=== PATIENT | male | born 1945 | race Caucasian/White ===

== ENCOUNTER 2016-04-10 15:08 | Observation (INO) | payer MEDICARE, OTHER ==
[2016-04-10] VITALS (9 sets, daily range): BP systolic 122–147; BP diastolic 70–79; PULSE 48–64; RESP 15–20; TEMP 97.2; Ht 167.6 cm; Wt 112.3 kg
[~2016-04-10] VITALS: Ht 167.6 cm; Wt 112.3 kg
[~2016-04-10 15:08] MED LIST: AMLO2.5T2 PO; DOCU-144 PO; DONE10TA7 PO; Fenofibrate PO; GABA300C16 PO; HYDR-762 PO; LORA1TAB PO; MEMA5TAB PO; ZOLP5TAB6 PO
[2016-04-10] MEDS ORDERED: SOD CHLORIDE 0.9% 500 ML IV STA (15:21)
[2016-04-10 15:39] LABS: BASOPHILS % 0.4 % (0.0-2.0); EOSINOPHILS # 0.1 10^3/ul (0.0-0.5); EOSINOPHILS % 1.1 % (0.0-7.0); HEMATOCRIT 47.8 % (42.0-52.0); HEMOGLOBIN 16.1 g/dl (14.0-18.0); LYMPHOCYTES # 1.9 10^3/ul (0.8-2.9); LYMPHOCYTES % 17.4 % (15.0-51.0); MEAN CORPUSCULAR HGB CONC 33.7 g/dl (32.0-37.0); MEAN CORPUSCULAR VOLUME 85.9 fl (82.0-101.0); MEAN PLATELET VOLUME 6.9 fl (7.4-10.4); MONOCYTE # 0.9 10^3/ul (0.3-0.9); MONOCYTES % 7.8 % (0.0-11.0); NEUTROPHILS % 73.3 % (39.0-77.0); PLATELET COUNT 224 10^3/UL (140-440); RED BLOOD COUNT 5.56 10^6/ul (4.70-6.10); RED CELL DISTRIBUTION WIDTH 15.8 % (11.5-14.5); UNCORRECTED WBC 10.9 10^3/ul (4.8-10.8); WHITE BLOOD COUNT 10.9 10^3/ul (4.8-10.8)
[2016-04-10 15:46] LABS: CONDITION 1; LH ANALYZER COMMENTS 1
[2016-04-10 15:48] LABS: CHLORIDE 99 mmol/L (97-110); SODIUM 140 mmol/L (135-144)
[2016-04-10 15:51] LABS: ANION GAP 16 (8-16); BLOOD UREA NITROGEN 18 mg/dl (7-20); CARBON DIOXIDE 29 mmol/L (21-31); CREATININE 1.03 mg/dl (0.61-1.24); GLUCOSE 89 mg/dl (70-220)
[2016-04-10 15:52] LABS: CALCIUM 9.6 mg/dl (8.4-10.2)
--- NOTE | 2016-04-10 16:08 | RADRPT ---
PROCEDURE: CT Brain without contrast. CLINICAL INDICATION: Syncope, neurologic deficit TECHNIQUE: A CT of the brain was performed on multidetector high-resolution CT scanner utilizing a xial sections from the skull base through the vertex without contrast. DOSE: CTDI = 44 mGy and the DLP = 720 mGy-cm. COMPARISON: Head CT 02/26/2015 FINDINGS: No acute intracranial hemorrhage, significant mass effect or midline shift. Patchy hypoattenuation o f the cerebral white matter is compatible with moderate chronic microvascular ischemic changes. Wildlife Biostation Research Ecologist norma right basal ganglia and bilateral watts radiata lacunar infarcts. Chronic left parieto-occipita l cortical infarct. Atherosclerotic calcifications of the cavernous segments of the internal caroti d and vertebral arteries are seen. Prominence of the cortical sulci and ventricles are related to mo derate cerebral volume loss. No significant opacification of the visualized paranasal sinuses or ma stoids. IMPRESSION: No significant interval change identified since 02/26/2015. No acute intracranial hemorrhage or significant mass effect. Moderate chronic microvascular disease and intracranial atherosclerosis. Chronic right basal ganglia and bilateral watts radiata lacunar infarcts. Chronic left parieto-occipital cortical infarct. RPTAT: AA .Erwin Saleem MD, MD Date Time Electronically viewed and signed by .Erwin Saleem MD, on 04/10/2016 16:07 .T/
[2016-04-10 16:14] LABS: TROPONIN-I < 0.010 ng/ml (0.00-0.12)
[2016-04-10] MEDS ORDERED: ONDANSETRON 4 MG INJ IV PRN ×2 (17:30→18:00)
[2016-04-10] MEDS ORDERED: ACETAMINOPHEN 325 MG TAB PO PRN ×2 (17:30→18:00)
[2016-04-10] MEDS ORDERED: TAMS0.4C2 PO (17:34)
[2016-04-10] MEDS ORDERED: LISI10TA2 PO (17:35)
[2016-04-10] MEDS ORDERED: ATOR80TA75 PO (17:36)
[2016-04-10] MEDS ORDERED: LEVO25TA53 PO (17:37)
[2016-04-10] MEDS ORDERED: CARV6.2579 PO (17:38)
[2016-04-10] MEDS ORDERED: IBUP-1542 PO (17:42)
--- NOTE | 2016-04-10 17:51 | ERA ---
ER Documentation Chief Complaint Date/Time DATE: 04/10/16 TIME: 17:47 Chief Complaint SYNCOPAL EPISODE FOR 5 MINUTES HPI Patient is a 70-year-old male with stroke and high blood pressure presents with passing out. He was brought in by ambulance. The cosmetician says that he "passed out" in an excess vehicle. It lasted for a few seconds when he was unresponsive and then happened again within 5 minutes. He is now back to his normal. Upon review of old medical records this is the patient's fourth visit to the ER since 2014. The cosmetician does not know the name of the primary doctor. ROS All systems reviewed and are negative except as per history of present illness. Medications Home Meds Active Scripts Docusate Sodium* (Colace*) 100 Mg Cap, 100 MG PO Q12H Y for CONSTIPATION, #30 Prov:ADELA VELÁSQUEZ 02/06/15 Reported Medications Ibuprofen* (Ibuprofen*) 600 Mg Tablet, 600 MG PO Q6H, TAB 04/10/16 Carvedilol* (Carvedilol*) 6.25 Mg Tablet, 6.25 MG PO BID, #60 TAB 04/10/16 Levothyroxine Sodium* (Levothyroxine Sodium*) 25 Mcg Tablet, 25 MCG PO BEFORE BREAKFAST, #30 TAB 04/10/16 Atorvastatin* (Atorvastatin*) 80 Mg Tablet, 40 MG PO QHS, #30 TAB 04/10/16 Lisinopril* (Lisinopril*) 10 Mg Tablet, 10 MG PO DAILY, #30 TAB 04/10/16 Tamsulosin Hcl* (Tamsulosin Hcl*) 0.4 Mg Cap.er.24h, 0.4 MG PO DAILY, CAP 04/10/16 Discontinued Reported Medications Donepezil* (Donepezil*) 10 Mg Tablet, 10 MG PO DAILY, TAB 02/04/15 Gabapentin* (Gabapentin*) 300 Mg Capsule, 300 MG PO TID, CAP 02/04/15 Zolpidem Tartrate* (Zolpidem Tartrate*) 5 Mg Tablet, 5 MG PO HS Y, TAB 02/04/15 Memantine* (Namenda*) 5 Mg Tablet, 5 MG PO BID, TAB 02/04/15 Amlodipine Besylate* (Norvasc*) 2.5 Mg Tablet, 2.5 MG PO DAILY, TAB 02/04/15 Lorazepam* (Lorazepam*) 1 Mg Tablet, 1 MG PO BID Y for ANXIETY, TAB 02/04/15 Discontinued Scripts Docusate Sodium* (Colace*) 100 Mg Capsule, 100 MG PO TID, #30 Prov:INDER MEDEIROS 03/07/15 Hydrocodone Bit-Acetaminophen* ([place]*) 10-325 Mg Tablet, 1 TAB PO Q6 Y for PAIN , #20 TAB Prov:INDER MEDEIROS 03/07/15 [Fenofibrate] 48 MG TAB No Conflict Check, 48 MG PO DAILY for 30 Days, TAB 2 Refills Prov:DALTON LEVIN. 02/28/15 Allergies Allergies: Coded Allergies: No Known Allergy (Unverified , 02/04/15) PMhx/Soc History of Surgery: No Anesthesia Reaction: No Hx Neurological Disorder: Yes (CVA 9 years ago) Hx Respiratory Disorders: No Hx Cardiac Disorders: Yes (HTN, high cholesterol) Hx Psychiatric Problems: Yes (dementia) Hx Miscellaneous Medical Probl: No Hx Alcohol Use: No Hx Substance Use: No Hx Tobacco Use: Yes Smoking Status: Former smoker FmHx Family History: No diabetes Physical Exam Vitals Vital Signs Date Time Temp Pulse Resp B/P Pulse Ox O2 Delivery O2 Flow Rate FiO2 04/10/16 15:25 97.2 57 18 124/74 100 Physical Exam Const: No acute distress Head: Atraumatic Eyes: Normal Conjunctiva ENT: Normal External Ears, Nose and Mouth. Neck: Full range of motion..~ No meningismus. Resp: Clear to auscultation bilaterally Cardio: Regular rate and rhythm, no murmurs Abd: Soft, non tender, non distended. Normal bowel sounds Skin: No petechiae or rashes Back: No midline or flank tenderness Ext: No cyanosis, or edema Neur: Awake and alert, left-sided weakness from previous stroke Psych: Normal Mood and Affect Result Diagram: 04/10/16 1533 04/10/16 1533 Results 24 hrs Laboratory Tests Test 04/10/16 15:33 04/10/16 16:02 Anion Gap 16 Basophils # 0.010^3/ul Basophils % 0.4% Blood Morphology Comment Blood Urea Nitrogen 18mg/dl Calcium Level 9.6mg/dl Carbon Dioxide Level 29mmol/L Chloride Level 99mmol/L Creatinine 1.03mg/dl Eosinophils # 0.110^3/ul Eosinophils % 1.1% Glucose Level 89mg/dl Hematocrit 47.8% Hemoglobin 16.1g/dl Lymphocytes # 1.910^3/ul Lymphocytes % 17.4% Mean Corpuscular Hemoglobin 29.0pg Mean Corpuscular Hemoglobin Concent 33.7g/dl Mean Corpuscular Volume 85.9fl Mean Platelet Volume 6.9fl Monocytes # 0.910^3/ul Monocytes % 7.8% Neutrophils # 8.010^3/ul Neutrophils % 73.3% Nucleated Red Blood Cells # 0.010^3/ul Nucleated Red Blood Cells % 0.0/100WBC Platelet Count 95574^3/UL Potassium Level 4.0mmol/L Red Blood Count 5.5610^6/ul Red Cell Distribution Width 15.8% Sodium Level 140mmol/L Troponin I < 0.010ng/ml White Blood Count 10.910^3/ul Bedside Glucose 128mg/dL Current Medications Medications (Trade) Dose Ordered Sig/Ana Route PRN Reason Start Time Stop Time Status Last Admin Dose Admin Sodium Chloride (NS) 500 ml @ 500 mls/hr Q1H STAT IV 04/10/16 15:21 04/10/16 16:20 DC 04/10/16 16:03 Procedures/MDM EKG read by me: Rate/Rhythm: Regular rate and rhythm at a normal rate Intervals: Normal Impression: No evidence of ischemia or arrhythmia CT head shows no sign of acute bleed per radiology. Patient is a 70-year-old male with stroke and hypertension who presents with syncope. Given his age and comorbidities I am concerned about a possible ventricular arrhythmia and I believe admission for a telemetry bed would be appropriate. I spoke with Dr. Levin who will admit the patient to a telemetry bed. Laboratory studies are normal. Departure Diagnosis: Primary Impression: Syncope Qualified Code: R55 - Syncope, unspecified syncope type Condition: THOMAS Mtz MD Apr 10, 2016 17:51
[2016-04-10] MEDS ORDERED: NA PHOSPHATE/BIPHOS 133 ML ENEMA PR PRN (18:00)
[2016-04-10] MEDS ORDERED: morphine 2 MG INJ IV PRN (18:00)
[2016-04-10] MEDS ORDERED: DOCUSATE SODIUM 100 MG CAP PO PRN (18:00)
[2016-04-10] MEDS ORDERED: hydrALAzine 20 MG INJ IV PRN (18:00)
[2016-04-10] MEDS ORDERED: LORAZEPAM 2 MG INJ IV PRN (18:00)
[2016-04-10] MEDS ORDERED: MAGNESIUM HYDROXIDE 30ML CUP PO PRN (18:00)
[2016-04-10] MEDS ORDERED: HYDROCODONE/APAP (5/325) TAB PO PRN (18:00)
[2016-04-10] MEDS ORDERED: ALBUTEROL/IPRATROPIUM (NEB) 3 ML AMP HHN PRN (18:00)
[2016-04-10] MEDS ORDERED: NACL 0.9% 3 ML SYG IV SCH (18:00)
[2016-04-10] MEDS ORDERED: NITROGLYCERIN (SL) 0.4 MG TAB SL PRN (18:00)
[2016-04-10] MEDS: SOD CHLORIDE 0.45% 1,000 ML IV SCH (18:25)
--- NOTE | 2016-04-10 18:33 | RADRPT ---
PROCEDURE: Carotid ultrasound CLINICAL INDICATION: Dizziness, stroke, carotid bruits TECHNIQUE: Eller scale, color doppler, spectral doppler ultrasound of the bilateral carotid and scott tebral arteries. SRU Consensus Conference Criteria for the Diagnosis of Carotid Artery Stenosis* Degree of Stenosis, % ICA PSV, cm/sec Plaque Estimate, % ICA/CCA PSV Ratio Normal <125 None <2.0 <50 <125 <50 <2.0 50 69 125-230 >50 2.0-4.0 >70 but less than near occlusion >230 >50 <4.0 Near occlusion High, low, or undetectable Visible Variable Total occlusion Undetectable Visible, no detectable lumen Not applicable *Cartoid artery stenosis: eller-scale and Doppler US diagnosis. Society of Radiologists in Ultrasound Consensus Conference. Radiology 2003; 229: 340-346. COMPARISON: Carotid ultrasound 02/27/2015 FINDINGS: Location Right CCA79 cm/sec Prox ICA 24 cm/sec Mid ICA52 cm/sec Dist ICA53 cm/sec ECA55 cm/sec ICA/CCA0.8 Left CCA93 cm/sec Prox ICA 77 cm/sec Mid ICA52 cm/sec Dist ICA43 cm/sec ECA72 cm/sec ICA/CCA0.8 Plaque burden: A small amount of plaque is present within the visualized portions of both internal c arotid arteries however there is no evidence of flow acceleration to suggest a hemodynamically signi ficant stenosis. Antegrade flow within the right vertebral artery. Left vertebral artery not identified. IMPRESSION: A small amount of plaque is present within the visualized portions of both internal carotid arteries however there is no evidence of flow acceleration to suggest a hemodynamically significant stenosis . Antegrade flow within the right vertebral artery. Left vertebral artery not identified; new from th e previous examination. MRA of the extracranial circulation may be useful for further evaluation. RPTAT: AADD .Terrance Donald MD, Date Time Electronically viewed and signed by .Terrance Donald MD, on 04/10/2016 18:33 .B/
[2016-04-10] MEDS ORDERED: AMLO2.5T78 PO (20:18)
[2016-04-10] MEDS ORDERED: PHEN125O2 PO (20:21)
[2016-04-10] MEDS ORDERED: GABA300C16 PO (20:22)
[2016-04-10] MEDS ORDERED: RANI150T5 PO (20:23)
[2016-04-10] MEDS ORDERED: CHLO25TA13 PO (20:24)
--- NOTE | 2016-04-10 21:21 | HP ---
DATE OF ADMISSION: 04/10/2016 This is a 70-year-old male. CHIEF COMPLAINT: Syncopal episode for 5 minutes. HISTORY OF PRESENT ILLNESS: A 70-year-old male past medical history of prior stroke and high blood pressure, dementia, possibly multi-infarct related, prior UTI and constipation who apparently was pr esenting with a syncopal event. He was brought in by EMS. According to the oncology nurse the patient h ad passed out en route to somewhere in a vehicle. It lasted for a few seconds, then the patient awo ke and then he became unresponsive again a few minutes later, that lasted for about 5 minutes. Appa rently he is now back to baseline. Most of the information obtained from the ER documentation as th e patient has some aphasia and is unable to provide a full HPI, although this appears to be his base line. The patient was last here at our hospital from 02/26/2015 on 02/28/2015. At that time, he al so presented with a syncopal or presyncopal event and ruled out for acute stroke at that time. PAST MEDICAL HISTORY: As stated above, also high cholesterol. ALLERGIES: NO KNOWN DRUG ALLERGIES. HOME MEDICATIONS: 1. Flomax 0.4 mg daily. 2. Atorvastatin 40 mg at bedtime. 3. Coreg 6.25 mg b.i.d. 4. Lisinopril 10 mg daily. 5. Ibuprofen 600 mg q. 6 hours. 6. Colace 100 mg q. 12 p.r.n. 7. Levothyroxine 25 mcg before breakfast. SOCIAL HISTORY: Former smoker, but denies any alcohol use or IV drug abuse. PAST SURGICAL HISTORY: Noncontributory. PHYSICAL EXAMINATION: VITAL SIGNS: T-max 97.2, pulse ____, respirations 18, blood pressure 124/74, saturating on ____ on room air. GENERAL: The patient is lying in bed, appears alert, no acute distress. HEENT: Pupils equal, round, react to light. Extraocular muscles intact. NECK: Supple, no thyromegaly. LUNGS: Clear to auscultation bilaterally. CARDIOVASCULAR: S1, S2 heard. No rubs or gallops. ABDOMEN: Soft, nontender, nondistended. Normal bowel sounds. No rebound or guarding. MUSCULOSKELETAL: He has got trace pitting edema bilateral lower extremities to the ankles. NEUROLOGIC: He has got left-sided weakness from previous stroke, but is awake and alert. LABORATORIES: CBC is normal. The basic metabolic panel was normal. Troponin is negative and again the head CT on this admission showed no significant interval change since 02/2015, no acute intracr anial hemorrhages or significant mass effects. There is chronic right basal ganglia and bilateral c norbetro radiata lacunar infarcts, chronic left parietal occipital cortical infarct, moderate chronic m icrovascular disease and intracranial atherosclerosis. Carotid Doppler was performed that shows a s mall amount of plaque present within the visualized portions of both internal carotid arteries; dailey scott, there is no evidence of flow acceleration to suggest a hemodynamically significant stenosis. T here is anterograde flow within the right vertebral artery. The left vertebral artery is not identi fied. ASSESSMENT AND PLAN: A 70-year-old male coming in with syncopal event x2 with a prior history of st roke and multi-infarct dementia. 1. Syncope. We will admit him to the telemetry floor. We will obtain the EKG and echocardiogram a s well. Follow up on final carotid Doppler studies as well. Follow up the MRI of the brain as well . Do neuro checks as well. Allow for permissive hypertension, although I have a low suspicion of jennifer barth, but given his history, we want to rule him out for that. So we will keep him on high dose as pirin. Do neuro checks every 4 hours. Get PT, OT and speech therapy consult as well. If there are any abnormalities in those results consider getting a neurology consult. 2. Bradycardia, unclear source. He appears to have type 1 AV block. We will consider getting a ca rdiology consult. Continue to monitor for now. 3. History of hypertension. Again, we are going to allow for permissive hypertension until we can definitively rule him out for stroke. 4. High cholesterol. Check a lipid panel. Continue statin. Also, check TSH and A1c. 5. Gastrointestinal prophylaxis, PPI. 6. Deep venous thrombosis prophylaxis, heparin subQ. Dictated By: DALTON MENDOZA/ROBERT Conf#: [id number] DID#: [id number] CC: DALTON LEVIN;*EndCC*
--- NOTE | 2016-04-10 22:26 | RADRPT ---
PROCEDURE: MR Brain without contrast. CLINICAL INDICATION: Neurologic deficit, syncope TECHNIQUE: An MRI of the brain was performed on a high-resolution MR scanner utilizing the followi ng sequences: Sagittal and axial T1 weighted, axial T2 weighted, axial FLAIR, coronal GRE, and axial diffusion weighted with ADC mapping. Images were reviewed high-resolution PACS workstation. No con trast was administered. COMPARISON: Brain MRI 02/27/2015 FINDINGS: No acute parenchymal hemorrhage, mass effect, or midline shift. No diffusion restriction to indicate recent infarct. Confluent T2 hyperintensity in the cerebral white matter is again identified. Toddler Lead Teacher norma bilateral watts radiata, right basal ganglia, pontine, left cerebellar and bilateral thalamic l acunar infarcts are identified. Extensive scattered foci of GRE susceptibility are again seen throu ghout the bilateral cerebral hemispheres, brain stem and bilateral cerebellar hemispheres . Chronic left posterior temporal and left parieto-occipital cortical infarcts. The ventricles are stable size. Moderate volume loss noted. Trace mucosal thickening in the right sphenoid sinus. IMPRESSION: No significant interval change identified since 02/27/2015. No evidence of recent infarct. Extensive scattered foci of GRE susceptibility are again seen throughout the bilateral cerebral christine spheres, brain stem and bilateral cerebellar hemispheres which may represent chronic hypertensive mi croangiopathy or amyloid angiopathy. Moderate volume loss. Advanced chronic microvascular disease and chronic lacunar infarcts. Chronic left posterior temporal and left parieto-occipital cortical infarcts. RPTAT: AA .Erwin Saleem MD, Date Time Electronically viewed and signed by .Erwin Saleem MD, on 04/10/2016 22:25 .T/
[2016-04-10] MEDS: ATORVASTATIN 80 MG TAB PO SCH (22:56)
[2016-04-10] MEDS: HEPARIN 5,000 UNIT/0.5 ML SYG SC SCH (23:12)
[2016-04-11] VITALS (11 sets, daily range): BP systolic 123–195; BP diastolic 65–100; PULSE 47–93; RESP 17–20
[2016-04-11] MEDS ORDERED: PANTOPRAZOLE 40 MG INJ IV SCH (06:00)
[2016-04-11] MEDS ORDERED: LEVOTHYROXINE 25 MCG TAB PO SCH (06:00)
[2016-04-11 07:39] LABS: POTASSIUM 3.7 mmol/L (3.5-5.1)
[2016-04-11 07:41] LABS: CREATININE 0.66 mg/dl (0.61-1.24)
[2016-04-11 07:42] LABS: BASOPHIL # 0.1 10^3/ul (0.0-0.1); BASOPHILS % 0.5 % (0.0-2.0); CALCIUM 9.3 mg/dl (8.4-10.2); EOSINOPHILS # 0.2 10^3/ul (0.0-0.5); EOSINOPHILS % 1.6 % (0.0-7.0); HEMATOCRIT 45.1 % (42.0-52.0); HEMOGLOBIN 15.3 g/dl (14.0-18.0); LYMPHOCYTES % 18.6 % (15.0-51.0); MAGNESIUM 1.8 mg/dl (1.7-2.5); MEAN CORPUSCULAR HEMOGLOBIN 29.1 pg (29.0-33.0); MEAN CORPUSCULAR VOLUME 85.7 fl (82.0-101.0); MEAN PLATELET VOLUME 7.6 fl (7.4-10.4); MONOCYTE # 0.6 10^3/ul (0.3-0.9); MONOCYTES % 5.8 % (0.0-11.0); NEUTROPHIL # 7.8 10^3/ul (1.6-7.5); NEUTROPHILS % 73.5 % (39.0-77.0); PLATELET COUNT 199 10^3/UL (140-440); RED BLOOD COUNT 5.27 10^6/ul (4.70-6.10); RED CELL DISTRIBUTION WIDTH 15.9 % (11.5-14.5); UNCORRECTED WBC 10.7 10^3/ul (4.8-10.8); WHITE BLOOD COUNT 10.7 10^3/ul (4.8-10.8)
[2016-04-11 07:46] LABS: CONDITION 1; LH ANALYZER COMMENTS 1
[2016-04-11 08:41] LABS: CHOL/HDL RATIO 3.1 RATIO
[2016-04-11] MEDS ORDERED: ASPIRIN (EC) 325 MG TAB PO SCH (09:00)
[2016-04-11 09:12] LABS: THYROID STIMULATING HORMONE 5.78 MIU/L (0.465-4.680)
[2016-04-11] MEDS: SOD CHLORIDE 0.45% 1,000 ML IV SCH ×2 (10:07→20:15)
[2016-04-11] MEDS: HEPARIN 5,000 UNIT/0.5 ML SYG SC SCH ×2 (10:15→20:40)
--- NOTE | 2016-04-11 14:12 | PDOCDIS ---
Discharge Instructions CONDITION Patient Condition: Stable HOME CARE INSTRUCTIONS: Special Diet: puree diet ACTIVITY: Activity Restrictions: Slowly Increase Activity FOLLOW UP/APPOINTMENTS Appointments Please take your medications as prescribed, and see your doctor in the clinic in 1 week. DALTON LEVIN Apr 11, 2016 14:11
[2016-04-11] MEDS ORDERED: LISINOPRIL 10 MG TAB PO SCH (14:30)
[2016-04-11] MEDS ORDERED: AMLODIPINE 2.5 MG TAB PO SCH (14:30)
[2016-04-11] MEDS ORDERED: DOCUSATE SODIUM 100 MG CAP PO PRN (14:30)
[2016-04-11] MEDS: IBUPROFEN 600 MG TAB PO SCH ×2 (14:57→18:30)
[2016-04-11] MEDS: PHENYTOIN 100 MG CAP PO SCH ×2 (14:59→20:36)
[2016-04-11] MEDS ORDERED: CHLORTHALIDONE 25 MG TAB PO SCH (15:00)
[2016-04-11] MEDS ORDERED: hydrALAzine 20 MG INJ IV PRN (18:00)
[2016-04-11] MEDS ORDERED: hydrALAzine 20 MG INJ IV ONE (18:00)
--- NOTE | 2016-04-11 18:02 | DS ---
DATE OF ADMISSION: 04/10/2016 DATE OF DISCHARGE: 04/11/2016 A 70-year-old male originally admitted on 04/10/2014 being discharged home on 04/11/2016. HOSPITAL COURSE: The patient initially came in with a syncopal episode at home. He has a prior his tory of strokes, he was admitted, he had imaging studies performed including a head CT and MRI of th e brain. Both did not show any acute intracranial abnormalities, although there were some old left posterior temporal and left parietal subcortical infarcts, but again nothing acute. The patient was admitted. He had some initial sinus bradycardia noted which improved during hospital stay. There were some findings of possible type 1 AV block ____now. The patient did have ____ as well and was r ecommended to continue pureed diet. He does take this at home. Apparently he has a Marjorie lift at h ome as well, but regarding his syncopal episodes, he had no more syncopal events. While he was here in the hospital, his vital signs remained stable as we were reintroducing his blood pressure medici nyasia as well. He also had a carotid Doppler study performed that showed no evidence of any hemodynam ically significant stenosis in both internal carotid arteries, although a small amount of plaque was present in both internal carotids, but again, no hemodynamically significant stenosis. Echocardio gram was performed, results are still pending by the time of discharge. So the patient will be disc harged home today in improved condition. DISCHARGE MEDICATIONS: The patient will go home with the following medications: 1. Amlodipine 2.5 mg p.o. daily. 2. Atorvastatin 40 mg at bedtime. 3. Coreg 6.25 mg b.i.d. 4. Chlorthalidone 25 mg daily. 5. Colace 100 mg q.12h. p.r.n. 6. Gabapentin 300 mg q.i.d. 7. Ibuprofen 600 mg q.6h. 8. Levothyroxine 25 mcg before breakfast. 9. Lisinopril 10 mg daily. 10. Phenytoin 10 mg t.i.d. 11. Ranitidine 150 mg q. 12 hours. 11. Flomax 0.4 mg daily. The patient will need to follow up with his regular doctor in the clinic in the next 1 to 2 weeks. FINAL DIAGNOSES: 1. Syncopal event ruled out for acute stroke. 2. Sinus bradycardia with type 1 AV block, now resolved. 3. History of essential hypertension. 4. High cholesterol. 5. Prior history of strokes in the past. 6. Multi-infarct related dementia. 7. Prior UTIs. 8. Prior constipation. Time spent on discharging the patient was 45 minutes. Dictated By: DALTON CONCEPCION Conf#: [id number] DID#: [id number]
[2016-04-11] MEDS: GABAPENTIN 300 MG CAP PO SCH ×2 (18:45→20:37)
[2016-04-11] MEDS ORDERED: LABETALOL HCL 20MG INJ IV ONE (20:00)
[2016-04-11] MEDS: ATORVASTATIN 80 MG TAB PO SCH (20:37)
[2016-04-11] MEDS ORDERED: RANITIDINE 150 MG TAB PO SCH (21:00)
[2016-04-11] MEDS ORDERED: TAMSULOSIN (SR) 0.4 MG CAP PO SCH (21:00)
[2016-04-12] MEDS ORDERED: PANTOPRAZOLE (EC) 40 MG TAB PO SCH (06:00)
--- NOTE | 2016-04-12 09:06 | RADRPT ---
Echocardiogram Report Patient Name: QUOC RICHARDS Gender: Male Date: 1945 Study Date: 11-Apr-2016 Verification Lead: ERIKA Location: E Ref. Physician: DALTON LEVIN Quality: Technically Difficult Study Procedures: Transthoracic echocardiogram with 2D, M-Mode, and Doppler examination, no subcostal images. Patient combative. Indications: History of Cerebrovascular Accident. 2D/M Mode Doppler Measurement Value Normal Ranges Measurement Value Normal Ranges AoR Diam MM 3.2 cm AV Peak Ge 1.2 m/sec LVIDd 2D 3.3 3.5 - 5.6 cm AV Peak PG 5.6 mmHg LVIDs 2D 2.1 2.1 - 4.1 cm LVOT Peak Ge 1.0 m/sec LVPWd 2D 1.4 0.6 - 1.1 cm LVOT Peak PG 4.1 mmHg IVSd 2D 1.4 0.6 - 1.1 cm MV E Peak Ge 0.5 m/sec EDV 2D 43.8 cm3 MV A Peak Ge 0.7 m/sec ESV 2D 9.1 cm3 MV E/A 0.8 LA Dimen 2D 3.5 2.3 - 4.0 cm MV Decel Time 274 msec MV Decel [place] 2 MV E/A 0.8 Findings Left Ventricle: Normal left ventricular systolic function. Mild concentric left ventricular hypertrophy. Ejection fraction is visually estimated at 55 %. Tissue Doppler/Mitral Doppler indices are consistent with impaired relaxation (Stage I diastolic dysfunction). Right Ventricle: Normal right ventricular size, patient lying supine and apical views more medial. Normal right ventricular systolic function. Left Atrium: Upper limit of normal left atrial size. Right Atrium: The right atrium is normal in size. Atrial Septum: Not well visualized. Mitral Valve: Normal appearance and function of the mitral valve with trace physiologic regurgitation. Aortic Valve: No significant aortic stenosis or insufficiency. Aortic cusps appear mildly calcified. Tricuspid Valve: Normal appearance of the tricuspid valve. Unable to obtain RVSP due to minimal presence of tricuspid regurgitation. No evidence of tricuspid regurgitation. Pulmonic Valve: Pulmonic valve not well visualized. Pericardium: Normal pericardium with no significant pericardial effusion. Aorta: Normal aortic root. IVC: The IVC is not well visualized. Pulmonary Artery: Not well visualized. Conclusions 1.Technically difficult study with poor endocardial visualization. 2.Normal left ventricular systolic function. Mild concentric left ventricular hypertrophy. Ejection fraction is visually estimated at 55 %. Tissue Doppler/Mitral Doppler indices are consistent with impaired relaxation (Stage I diastolic dysfunction). 3.No significant valvular stenosis or regurgitation seen. 4.PAP and RA pressure could not be estimated. Electronically Signed By: Domingo Martínez 12-Apr-2016 09:05:17 0800 Patient Name: QUOC RICHARDS Study Date: 11-Apr-[id number]
== END 2016-04-11 22:40 | disposition home or self-care (01) ==
LOC: E/R 15:08 → TEL 17:10
PROVIDERS: ADMIT Hospitalist; ATTEND Hospitalist
DX: R55 Syncope and collapse (principal); R00.1 Bradycardia, unspecified; I10 Essential (primary) hypertension; E78.00 Pure hypercholesterolemia, unspecified; F03.90 Unspecified dementia, unspecified severity, without behavioral disturbance, psychotic disturbance, mood disturbance, and anxiety
CPT/HCPCS: 36415; 70450; 70551; 80048; 80061; 82962; 83036; 83735; 84100; 84439; 84443; 84484; 85025; 93005; 93306; 93880; 99285; C9113; G0378; G8996; G8997; J0360; J1644; J2060; J7040; 99217